=== PATIENT | female | born 1970 | race Caucasian/White ===

== ENCOUNTER 2020-01-22 00:23 | Outpatient (CLI) | payer SELFPAY ==
--- NOTE | 2020-01-22 | DI.MAMMO_ITS ---
EXAM: MG MAMMO SCREENING 60 MIN DUR CLINICAL HISTORY: IMPLANTS,SCREENING, Z12.31 TECHNIQUE: Mammograms were interpreted according to the usual protocol including computer analysis w [employer] CAD system, tomosynthesis and C-view imaging. COMPARISON: FINDINGS: There are bilateral mammary implants. Breasts are heterogeneously dense. There is 12 millimeter in diameter well-circumscribed mass of the upper outer left breast I am uncertain whether this was prese nt prior examinations including October 2015. No other suspicious mass or clumped microcalcification se en. Breast ultrasound requested to evaluate this well-circumscribed mass. IMPRESSION: Left breast ultrasound requested to evaluate 12 millimeter well-circumscribed upper outer quadrant ma ss. BI-RADS Category 0 - Assessment Incomplete: Need additional imaging evaluation Breast Density - Category C - Heterogeneously dense
== END 2020-01-22 00:43 ==
PROVIDERS: PCP Obstetrics & Gynecology; Visit Provider Nurse Practitioner Women's Health
DX: Z12.31 Encounter for screening mammogram for malignant neoplasm of breast (principal); R92.2 Inconclusive mammogram; N63.21 Unspecified lump in the left breast, upper outer quadrant
CPT/HCPCS: 77063; 77067

== ENCOUNTER 2020-01-30 02:23 | Outpatient (CLI) | payer SELFPAY ==
--- NOTE | 2020-01-30 | DI.US_ITS ---
EXAM: US BREAST LT LIMITED CLINICAL HISTORY: F/U [facility] MAMMO, 12 MM UPPER OUTER LT BREAST MASS TECHNIQUE: Ultrasound right breast performed using standard protocol. COMPARISON: No exams were available for comparison FINDINGS: No solid masses, hypoechoic foci, areas of abnormal shadowing, or areas of skin thickening. Several r adially oriented well-circumscribed cysts are seen in the upper outer quadrant of the left breast whi ch corresponds to the mammographic abnormality. The largest is at the 3 o'clock position 3 cm from t he nipple and measures 1.3 x 0.7 x 1.3 cm. IMPRESSION: Left breast cysts. No sonographically suspicious findings Unless there is more urgent need, screening mammography is recommended, as per [employer] guidelines. BI-RADS Category 2 - Benign Findings DATA REPOSITORY:
== END 2020-01-30 02:43 ==
PROVIDERS: PCP Obstetrics & Gynecology; Visit Provider Nurse Practitioner Women's Health
DX: N60.02 Solitary cyst of left breast (principal)
CPT/HCPCS: 76642